=== PATIENT | male | born 1935 ===

== ENCOUNTER 2022-12-27 13:04 | Outpatient (REF) | payer MEDICARE, MEDICAID, SELFPAY | END 2022-12-27 13:05 | disposition home or self-care (01) | LOC: HO.SH 13:04 | PROVIDERS: Visit Provider Physician Assistant | DX: H90.A21 Sensorineural hearing loss, unilateral, right ear, with restricted hearing on the contralateral side (principal) | CPT/HCPCS: 92553 ==

== ENCOUNTER 2023-02-27 15:18 | Outpatient (REF) | payer MEDICARE, MEDICAID, SELFPAY | END 2023-02-27 15:19 | disposition home or self-care (01) | LOC: HO.SH 15:18 | PROVIDERS: Visit Provider Physician Assistant | DX: Z01.118 Encounter for examination of ears and hearing with other abnormal findings (principal); H90.A21 Sensorineural hearing loss, unilateral, right ear, with restricted hearing on the contralateral side; H90.A32 Mixed conductive and sensorineural hearing loss, unilateral, left ear with restricted hearing on the contralateral side | CPT/HCPCS: 92567 ==